=== PATIENT | male | born 1950 | race Caucasian/White ===

== ENCOUNTER 2020-05-06 03:49 | Emergency (ER) | payer MEDICARE ==
[~2020-05-06] VITALS: Ht 175 cm; Wt 92.9 kg
[2020-05-06] MEDS ORDERED: KETOROLAC 30 MG/ML VIAL IM ONE (04:30)
[2020-05-06] MEDS ORDERED: PRD20T PO (05:01)
--- NOTE | 2020-05-06 05:01 | ED Hip Pain/Injury ---
General Chief Complaint: Hip/Pelvic Problems Stated Complaint: LEFT HIP PAIN Nursing Triage Note: POSSIBLY FELL A FEW MONTHS AGO. INCREASE PAIN IN THE LEFT HIP IN THE PAST FEW WEEKS. UNABLE MOBILIZE THIS EVENING. INCREASE PAIN WITH WEIGHT BEARING. TOOK SOME IBUPROFEN BEFORE MIDNIGHT TONIGHT. Source: patient Exam Limitations: no limitations (ARNALDO TURNER MD) History of Present Illness Date Seen by Provider: May 06, 2020 Time Seen by Provider: 03:58 Initial Comments This 69-year-old gentleman presents to the emergency room by private vehicle. He drove himself here but was unable to get in on his own. Staff brought him in from the car by wheelchair. His primary complaint today is left hip pain. It is worse with weightbearing. Pain seems to originate around the left SI joint, radiates along the greater trochanter, and then radiates down the left leg. He denies any bowel or bladder dysfunction, groin paresthesia, or true weakness. He took 1 ibuprofen around midnight. (ARNALDO TURNER MD) Allergies and Home Medications Allergies Coded Allergies: No Known Drug Allergies (Unverified , 05/06/20) Home Medications Amlodipine Besylate 10 Mg Tablet, 10 MG PO DAILY Prescribed by: SHAJI ORTEGA on 05/06/20 0755 Metoprolol Succinate 50 Mg Tab.er.24h, 50 MG PO DAILY Prescribed by: SHAJI ORTEGA on 05/06/20 0755 Prednisone 20 Mg Tab, 20 MG PO DAILY Prescribed by: ARNALDO VALERA on 05/06/20 0501 Tramadol HCl 50 Mg Tablet, 50 MG PO Q6H PRN for PAIN Prescribed by: SHAJI ORTEGA on 05/06/20 0802 Patient Home Medication List Home Medication List Reviewed: Yes (ARNALDO TURNER MD) Review of Systems Constitutional: no symptoms reported EENTM: no symptoms reported Respiratory: no symptoms reported Cardiovascular: no symptoms reported Gastrointestinal: no symptoms reported Genitourinary: no symptoms reported Musculoskeletal: see HPI Skin: no symptoms reported Psychiatric/Neurological: No Symptoms Reported (ARNALDO TURNER MD) Past Shlparm-Taflpf-Hdupgq Hx Past Med/Social Hx: Reviewed Nursing Past Med/Soc Hx (ARNALDO TURNER MD) Patient Social History Alcohol Use: Denies Use 2nd Hand Smoke Exposure: No Recent Infectious Disease Expo: No Recent Hopitalizations: No (ARNALDO TURNER MD) Seasonal Allergies Seasonal Allergies: No (ARNALDO TURNER MD) Past Medical History Surgeries: No Respiratory: No Cardiac: Yes Hypertension Neurological: No Genitourinary: No Gastrointestinal: No Musculoskeletal: No Endocrine: No HEENT: No Cancer: No Psychosocial: No Integumentary: No Blood Disorders: No (ARNALDO TURNER MD) Physical Exam Vital Signs Vital Signs - First Documented 05/06/20 04:14 Temp 37.3 Pulse 104 Resp 22 B/P (MAP) 197/124 (148) Pulse Ox 98 O2 Delivery Room Air (SHAJI ORTEGA MD) Vital Signs Capillary Refill : Less Than 3 Seconds (ARNALDO TURNER MD) Height, Weight, BMI Height: '" Weight: lbs. oz. kg; 30.00 BMI Method: General Appearance: WD/WN, Mild Distress, Thin HEENT: PERRL/EOMI, Normal ENT Inspection Neck: Normal Inspection Cardiovascular: Regular Rate, Rhythm, No Edema, No Murmur Respiratory: Lungs Clear, Normal Breath Sounds, No Accessory Muscle Use Gastrointestinal: Normal Bowel Sounds, Non Tender, Soft Back: Normal Inspection, Other (Left SI joint tenderness. ) Extremity: No Pedal Edema, Other (No tenderness directly over the left hip joint. Tenderness to palpation over the greater trochanter. 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, Abnormal Cerebellar Tests Skin: Normal Color, Warm/Dry (ARNALDO TURNER MD) Progress/Results/Core Measures Results/Orders Lab Results Laboratory Tests Test 05/06/20 05:30 05/06/20 07:06 Range/Units White Blood Count 13.3 H 4.3-11.0 10^3/uL Red Blood Count 3.89 L 4.30-5.52 10^6/uL Hemoglobin 9.9 L 13.3-17.7 g/dL Hematocrit 32 L 40-54 % Mean Corpuscular Volume 83 80-99 fL Mean Corpuscular Hemoglobin 25 25-34 pg Mean Corpuscular Hemoglobin Concent 31 L 32-36 g/dL Red Cell Distribution Width 15.4 H 10.0-14.5 % Platelet Count 184 130-400 10^3/uL Mean Platelet Volume 10.7 9.0-12.2 fL Immature Granulocyte % (Auto) 1 % Neutrophils (%) (Auto) 91 H 42-75 % Lymphocytes (%) (Auto) 4 L 12-44 % Monocytes (%) (Auto) 4 0-12 % Eosinophils (%) (Auto) 0 0-10 % Basophils (%) (Auto) 0 0-10 % Neutrophils # (Auto) 12.1 H 1.8-7.8 10^3/uL Lymphocytes # (Auto) 0.6 L 1.0-4.0 10^3/uL Monocytes # (Auto) 0.5 0.0-1.0 10^3/uL Eosinophils # (Auto) 0.0 0.0-0.3 10^3/uL Basophils # (Auto) 0.0 0.0-0.1 10^3/uL Immature Granulocyte # (Auto) 0.1 0.0-0.1 10^3/uL Neutrophils % (Manual) 91 % Lymphocytes % (Manual) 5 % Monocytes % (Manual) 4 % Anisocytosis SLIGHT Sodium Level 137 135-145 MMOL/L Potassium Level 4.4 3.6-5.0 MMOL/L Chloride Level 106 98-107 MMOL/L Carbon Dioxide Level 15 L 21-32 MMOL/L Anion Gap 16 H 5-14 MMOL/L Blood Urea Nitrogen 29 H 7-18 MG/DL Creatinine 3.08 H 0.60-1.30 MG/DL Estimat Glomerular Filtration Rate 20 BUN/Creatinine Ratio 9 Glucose Level 114 H 70-105 MG/DL Calcium Level 9.4 8.5-10.1 MG/DL C-Reactive Protein High Sensitivity 0.82 H 0.00-0.50 MG/DL TSH [place] Testing 1.62 0.35-4.94 UIU/ML Urine Color YELLOW Urine Clarity CLEAR Urine pH 5.5 5-9 Urine Specific [place] >=1.030 1.016-1.022 Urine Protein 2+ H NEGATIVE Urine Glucose (UA) NEGATIVE NEGATIVE Urine Ketones NEGATIVE NEGATIVE Urine Nitrite NEGATIVE NEGATIVE Urine Bilirubin NEGATIVE NEGATIVE Urine Urobilinogen 0.2 < = 1.0 MG/DL Urine Leukocyte Esterase NEGATIVE NEGATIVE Urine RBC (Auto) 2+ H NEGATIVE Urine RBC RARE /HPF Urine WBC 0-2 /HPF Urine Crystals NONE /LPF Urine Bacteria TRACE /HPF Urine Casts PRESENT /LPF Urine Granular Casts 2-5 H /LPF Urine Mucus NEGATIVE /LPF Urine Culture Indicated NO (SHAJI ORTEGA MD) My Orders Orders - SHAJI ORTEGA MD Hydralazine Injection (Apresoline Inject (05/06/20 06:45) Ed Iv/Invasive Line Start (05/06/20 06:31) Ekg Tracing (05/06/20 06:31) Ns Iv 500 Ml (Sodium Chloride 0.9%) (05/06/20 06:45) Chest 1 View, Ap/Pa Only (05/06/20 06:40) Acetaminophen Tablet (Tylenol Tablet) (05/06/20 06:57) Morphine Injection (Morphine Injection (05/06/20 07:00) Metoprolol Tartrate Injection (Lopressor (05/06/20 07:30) Metoprolol Succinate (Xl) Tab (Toprol Xl (05/06/20 07:30) Prednisone Tablet (Deltasone Tablet) (05/06/20 08:00) (SHAJI ORTEGA MD) Medications Given in ED Current Medications Medications Dose Ordered Sig/Jeff Route Start Time Stop Time Status Last Admin Dose Admin Amlodipine Besylate 10 mg ONCE ONCE PO 05/06/20 05:30 05/06/20 05:31 DC 05/06/20 05:33 10 MG Hydralazine HCl 10 mg ONCE ONCE IV 05/06/20 06:45 05/06/20 06:46 DC 05/06/20 06:51 10 MG Ketorolac Tromethamine 30 mg ONCE ONCE IM 05/06/20 04:30 05/06/20 04:31 DC 05/06/20 04:30 30 MG Metoprolol Tartrate 5 mg ONCE ONCE IV 05/06/20 07:30 05/06/20 07:32 DC 05/06/20 07:49 5 MG Morphine Sulfate 2 mg ONCE ONCE IVP 05/06/20 07:00 05/06/20 07:01 DC 05/06/20 07:04 2 MG Prednisone 40 mg ONCE ONCE PO 05/06/20 08:00 05/06/20 08:01 DC 05/06/20 07:53 40 MG Sodium Chloride 500 ml @ 0 mls/hr Q0M ONCE IV 05/06/20 06:45 05/06/20 06:46 DC 05/06/20 06:51 999 MLS/HR (SHAJI ORTEGA MD) Vital Signs/I&O 05/06/20 04:14 Temp 37.3 Pulse 104 Resp 22 B/P (MAP) 197/124 (148) Pulse Ox 98 O2 Delivery Room Air (SHAJI ORTEGA MD) Blood Pressure Mean: 148 Progress Progress Note #1: Time: 05:26 Progress Note Patient was feeling significantly improved after a Toradol injection. X-rays were unremarkable. He was being prepared for discharge would it was noted that his blood pressure did not improve with pain control. After multiple rechecks he was offered some work-up and treatment for hypertension. He decided to proceed with work-up and treatment. Norvasc 10 mg was ordered and blood work is being obtained. He also describes having some nausea and dizziness yesterday when his pain was intense. Patient reports having hypertension since he was very young. Progress Note #2: Time: 06:05 Progress Note WBC was noted to be elevated. CRP and UA are being added to the labs. Care of this patient is being transitioned to Dr. Ortega at this time. (ARNALDO TURNER MD) Progress Note : Progress Note 0632: Patient's blood pressure remains elevated in the low 200s over 130s. IV ordered. Hydralazine 10 mg IV ordered. We will also get EKG and chest x-ray. Patient noted to have have creatinine at 3 and other signs of chronic renal failure. Hypertension not improved after amlodipine earlier. States hip pain is a little better now and more tolerable but he still has continuation of pain. Pending UA. Monitor patient. 0740: Patient's blood pressure decreased to 170/106. I have discussed the case with Dr. Emerson. He is recommending 5 mg of Lopressor IV now and 50 mg of Toprol-XL p.o. now. We will continue outpatient therapy with amlodipine 10 mg p.o. daily as well as Toprol-XL 50 mg p.o. daily and he will see the patient on . We will initiate prednisone daily for 5 days for the hip pain and will give outpatient prescription for tramadol that he can take with acetaminophen. Patient was instructed to avoid NSAIDs due to the kidney disease and does admit that he has been taking those recently. I did discuss in depth my concerns related to his chronic renal failure and uncontrolled hypertension and how these relate. I also discussed the importance of follow-up and appropriate control of his blood pressure to decrease worsening of his renal disease. Patient verbalized understanding and intent to comply. (SHAJI ORTEGA MD) Initial ECG Impression Date: May 06, 2020 Initial ECG Impression Time: 06:44 Initial ECG Rate: 101 Initial ECG Rhythm: S.Tach Comment Sinus tachycardia with PVC noted. Left ventricular hypertrophy likely. No evidence of ST elevation MD. Normal axis. Interpreted by me. (SHAJI ORTEGA MD) Diagnostic Imaging Diagonstic Imaging: Xray Plain Films/CT/US/NM/MRI: pelvis, hip Comments [facility], [place] NAME: IGGY ALFRED [facility] REC#: [id number] PT STATUS: REG ER : 1950 PHYSICIAN: ARNALDO TURNER MD ADMIT DATE: 05/06/20/ER Draft Date of Exam:05/06/20 PELVIS WITH LEFT HIP 2-3 VIEWS INDICATION: Hip pain COMPARISON: None FINDINGS: Single view of the pelvis and two views of the left hip demonstrate symmetric swxt-en-vlthtrha degenerative joint disease bilaterally. There is no acute fracture or dislocation. No osseous lesion. IMPRESSION: Degenerative joint disease without fracture Dictated on workstation # [id number] Dict: 05/06/2007 Trans: 05/06/20 0613 ELVA [id number] Interpreted by: IGGY PEREZ Electronically signed by: (SHAJI ORTEGA MD) Departure Impression Primary Impression: Left hip pain Additional Impressions: Lumbar radiculopathy, acute Hypertension Qualified Codes: I10 - Essential (primary) hypertension Chronic renal disease Qualified Codes: N18.9 - Chronic kidney disease, unspecified Disposition: 01 HOME, SELF-CARE Condition: Stable Departure-Patient Inst. Decision time for Depature: 04:58 (ARNALDO TURNER MD) Decision time for Depature: 07:50 (SHAJI ORTEGA MD) Referrals: NO,LOCAL PHYSICIAN (PCP/Family) Primary Care Physician Patient Instructions: Hip Pain (DC), Radiculopathy, High Blood Pressure (DC), Kidney Failure (DC) Add. Discharge Instructions: You may take Tylenol/acetaminophen 1000 mg every 6 hours as needed for pain. You may take other pain medication as prescribed if that is not working. It is very important that you follow-up with Dr. Butts on . Call his office today for appointment. Let them know that the case was discussed with him and he wants to see you on . Take medications as prescribed. It is very important that you get control of your high blood pressure as this is significantly affecting your kidney function which is dangerous. Return for worse pain, fever, vomiting, weakness, breathing problems or other concerns as needed. Do not take ibuprofen, Motrin, Aleve, Naprosyn or similar NSAIDs as these are hard on the kidney function. You need to drink plenty of fluids. All discharge instructions reviewed with patient and/or family. Voiced understanding. Scripts Tramadol HCl (Tramadol HCl) 50 Mg Tablet 50 MG PO Q6H PRN for PAIN for 3 Days, #12 TAB 0 Refills Prov: SHAJI ORTEGA MD 05/06/20 Metoprolol Succinate (Toprol Xl) 50 Mg Tab.er.24h 50 MG PO DAILY, #30 TAB 0 Refills Prov: SHAJI ORTEGA MD 05/06/20 Amlodipine Besylate (Amlodipine Besylate) 10 Mg Tablet 10 MG PO DAILY, #30 TAB 0 Refills Prov: SHAJI ORTEGA MD 05/06/20 Prednisone (Prednisone) 20 Mg Tab 20 MG PO DAILY, #4 TAB 0 Refills Prov: ARNALDO TURNER MD 05/06/20 Copy Copies To 1: NOEL BUTTS MD, JOSHUA T MD May 06, 2020 05:01 SHAJI ORTEGA MD May 06, 2020 06:57
[2020-05-06] MEDS ORDERED: amLODIPine 10 MG (NORVASC) TAB PO ONE (05:30)
[2020-05-06 05:42] LABS: BASOPHILS % (AUTO) 0 % (0-10); EOSINOPHILS % (AUTO) 0 % (0-10); HEMATOCRIT 32 % (40-54); HEMOGLOBIN 9.9 g/dL (13.3-17.7); LYMPHOCYTES # (AUTO) 0.6 10^3/uL (1.0-4.0); LYMPHOCYTES % (AUTO) 4 % (12-44); MEAN CORPUSCULAR HEMOGLOBIN 25 pg (25-34); MEAN CORPUSCULAR HGB CONC 31 g/dL (32-36); MEAN CORPUSCULAR VOLUME 83 fL (80-99); MEAN PLATELET VOLUME 10.7 fL (9.0-12.2); MONOCYTES # (AUTO) 0.5 10^3/uL (0.0-1.0); MONOCYTES % (AUTO) 4 % (0-12); NEUTROPHILS # (AUTO) 12.1 10^3/uL (1.8-7.8); NEUTROPHILS % (AUTO) 91 % (42-75); WHITE BLOOD COUNT 13.3 10^3/uL (4.3-11.0)
[2020-05-06 05:59] LABS: POTASSIUM 4.4 MMOL/L (3.6-5.0)
[2020-05-06 06:00] LABS: CALCIUM 9.4 MG/DL (8.5-10.1)
[2020-05-06 06:05] LABS: CREATININE SERUM 3.08 MG/DL (0.60-1.30)
--- NOTE | 2020-05-06 06:15 | Diagnostic Imaging Report ---
INDICATION: Hip pain COMPARISON: None FINDINGS: Single view of the pelvis and two views of the left hip demonstrate symmetric auxo-wb-[id number] degenerative joint disease bilaterally. There is no acute fracture or dislocation. No osseous lesion. IMPRESSION: Degenerative joint disease without fracture Dictated by: Dictated on workstation # [id number]
[2020-05-06 06:26] LABS: ANISOCYTOSIS SLIGHT; LYMPHOCYTES % (MANUAL) 5 %; MONOCYTES % (MANUAL) 4 %; NEUTROPHILS % (MANUAL) 91 %; PLATELET COUNT 184 10^3/uL (130-400)
[2020-05-06 06:27] LABS: TSH (THYROID ANALYZER) 1.62 UIU/ML (0.35-4.94)
[2020-05-06] MEDS ORDERED: NS IV 500 ML 500 ML IV ONE (06:45)
[2020-05-06] MEDS ORDERED: hydrALAZINE (APESOLINE) 20 MG/ML VIAL IV ONE (06:45)
[2020-05-06] MEDS ORDERED: ACETAMINOPHEN 500 MG TAB (TYLENOL) PO STA (06:57)
[2020-05-06] MEDS ORDERED: morphine INJ 10 MG/ML 1ML (SYR OR VIAL) IVP ONE (07:00)
--- NOTE | 2020-05-06 07:02 | Diagnostic Imaging Report ---
INDICATION: Hypertension. COMPARISON: None FINDINGS: Single view of the chest demonstrates mild cardiac enlargement with central vascular congestion. Benign-appearing nodules in the left base. There is no pneumothorax or effusion. Osseous structures stable. IMPRESSION: Cardiac enlargement with central vascular congestion. Dictated by: Dictated on workstation # [id number]
[2020-05-06 07:12] LABS: BILIRUBIN,URINE NEGATIVE (NEGATIVE); CLARITY,URINE CLEAR; COLOR,URINE YELLOW; GLUCOSE, URINE (UA) NEGATIVE (NEGATIVE); KETONES,URINE NEGATIVE (NEGATIVE); LEUKOCYTE ESTERASE ,URINE NEGATIVE (NEGATIVE); NITRITE,URINE NEGATIVE (NEGATIVE); PH,URINE 5.5 (5-9); PROTEIN,URINE 2+ (NEGATIVE)
--- NOTE | 2020-05-06 07:27 | NUR ---
PT NO LONGER A PUI. PT NOTIFIED
[2020-05-06] MEDS ORDERED: meTOprolol 5 MG/5 ML (LOPRESSOR) VIAL IV ONE (07:30)
[2020-05-06] MEDS ORDERED: meTOproloL SUCCINATE 50 MG (TOPROL XL) TAB PO SCH (07:30)
[2020-05-06 07:31] LABS: BACTERIA,URINE TRACE /HPF; RBC,URINE RARE /HPF; WBC,URINE 0-2 /HPF
[2020-05-06] MEDS ORDERED: AMLO-251 PO (07:55)
[2020-05-06] MEDS ORDERED: METO-352 PO (07:55)
[2020-05-06] MEDS ORDERED: predniSONE 20 MG TAB PO ONE (08:00)
[2020-05-06] MEDS ORDERED: TRM50T PO (08:02)
[2020-05-06 08:30] VITALS: BP 175/115
== END 2020-05-06 08:30 | disposition home or self-care (01) ==
LOC: EDUNIT# 03:49 → ER 03:55
DX: M25.552 Pain in left hip (principal); M54.16 Radiculopathy, lumbar region; I12.9 Hypertensive chronic kidney disease with stage 1 through stage 4 chronic kidney disease, or unspecified chronic kidney disease; N18.9 Chronic kidney disease, unspecified; Z79.52 Long term (current) use of systemic steroids
CPT/HCPCS: 36415; 71045; 80048; 81000; 84443; 85007; 85027; 86141; 93005

== ENCOUNTER 2020-09-12 17:01 | Inpatient (IN) | payer MEDICARE ==
[~2020-09-12] VITALS: Ht 182 cm; Wt 68.9 kg
[~2020-09-12 17:01] MED LIST: AMLO-251 PO; METO-352 PO; PRD20T PO; TRM50T PO
--- NOTE | 2020-09-12 18:36 | ED General ---
General Chief Complaint: Neuro-Stroke Like Symptoms Stated Complaint: WEAKNESS Nursing Triage Note: family reports pt has been altered mentation for approx 3 weeks. no appetite. hx of cva. Nursing Sepsis Screen: No Definite Risk Exam Limitations: Other (PT UNABLE TO PROVIDE ANY INFORMATION, AND BROTHER IS EXTREMELY POOR HISTORIAN WELL. PAST MEDICAL HISTORY IS UNKNOWN, ARE MEDICA TIONS. ) History of Present Illness Date Seen by Provider: Sep 12, 2020 Time Seen by Provider: 18:05 Initial Comments PT ARRIVES VIA POV FROM HOME WITH BROTHER BOTH PT AND BROTHER ARE EXTREMELY POOR HISTORIANS, AND NEITHER CAN GIVE ANY INFORMATION ABOUT PAST MEDICAL HISTORY, MEDICATIONS, ETC PT IS MINIMALLY VERBAL AND DOES NOT VOLUNTEER ANY INFORMATION, ONLY ANSWERS A FEW VERY SIMPLE YES/NO QUESTIONS BROTHER STATES THAT PT WAS FOUND ON THE FLOOR TODAY AROUND [address] UN[address], PT LIVES ALONE BROTHER STATES PT HAS NOT BEEN ACTING RIGHT FOR THE LAST FEW WEEKS--AT LEAST 3 WEEKS BROTHER STATES THAT SISTER WENT TO SEE HIM LAST NIGHT AND "HE WAS TALKING OUT OF HIS HEAD", THEN NO ONE HAD SEEN OR TALKED TO HIM UNTIL TODAY AT 1600 BROTHER LAST SAW HIM LAST 09/05/20, AND HE "WASN'T RIGHT THEN EITHER" -- BROTHER STATES THAT HE DID NOT WANT TO SEE HIM, WOULD NOT LET HIM IN THE HOUSE, AND TOLD HIM TO LEAVE HIM ALONE BROTHER STATES HE HAS HAD A STROKE IN THE PAST, BUT DOES NOT KNOW HOW LONG AGO, WHAT HIS SYMPTOMS WERE, OR WHAT HIS RESIDUAL SYMPTOMS ARE/IF ANY BROTHER STATES THAT HE HAS LOST ALOT OF WEIGHT ( UNKNOWN AMOUNT ) OVER THE LAST FEW MONTHS, AND HAS HAD DECREASED APPETITE FOR SEVERAL MONTHS, AND HAS HAD AN OVERALL DECLINE AND CHANGE IN MENTATION FOR THE LAST FEW MONTHS. THEY REPORT THAT HE DOES NOT HAVE A DR, BUT HAS SEEN DR. VALDEZ IN THE PAST, BUT HAVE NO IDEA WHAT HE WAS SEEN / TREATED FOR BROTHER STATES HE IS ON A "BLOOD THINNER" BUT HAVE NO IDEA WHAT MEDICATION HE IS ON. RN CALLED [facility]--PT STATES THIS IS WHAT PHARMACY HE USES, AND THEY REPORT THAT PT HAS NOT FILLED ANY MEDICATIONS THERE SINCE MAY, AND WAS ONLY ON AMLODIPINE AND TOPROL. THEY HAVE NOT FILLED ANY PRESCRIPTIONS FOR ANY BLOOD THINNERS. THERE IS A SINGLE ER CHART FROM MAY OF THIS YEAR, AND PT WAS SEEN FOR HIP PAIN. THERE IS ESSENTIALLY NO PAST MEDICAL HISTORY NOTED AT THAT VISIT EITHER, OTHER THAN HTN PT STATES HE HAS NOT HAD COVID-19 VACCINE PT UNABLE TO STATE IF HE HAS HAD ANY COVID-19 SYMPTOMS PT DENIES PAIN ANYWHERE DENIES SHORTNESS OF BREATH PT HAS DIFFICULTY FOLLOWING SIMPLE COMMANDS [facility] CONSULTANT: DR. VALDEZ Allergies and Home Medications Allergies Coded Allergies: No Known Drug Allergies (Unverified , 05/06/20) Home Medications Amlodipine Besylate 10 Mg Tablet, 10 MG PO DAILY Prescribed by: SHAJI ORTEGA on 05/06/20 0755 Metoprolol Succinate 50 Mg Tab.er.24h, 50 MG PO DAILY Prescribed by: SHAJI ORTEGA on 05/06/20 0755 Prednisone 20 Mg Tab, 20 MG PO DAILY Prescribed by: ARNALDO VALERA on 05/06/20 0501 Tramadol HCl 50 Mg Tablet, 50 MG PO Q6H PRN for PAIN Prescribed by: SHAJI ORTEGA on 05/06/20 0802 Patient Home Medication List Home Medication List Reviewed: Yes Review of Systems Review of Systems Constitutional: malaise, weakness Psychiatric/Neurological: See HPI Past Afylcri-Iutosw-Usugpf Hx Patient Social History 2nd Hand Smoke Exposure: No Recent Infectious Disease Expo: No Recent Hopitalizations: No Seasonal Allergies Seasonal Allergies: No Past Medical History Surgeries: No Respiratory: No Cardiac: Yes Hypertension Neurological: No Genitourinary: No Gastrointestinal: No Musculoskeletal: No Endocrine: No HEENT: No Cancer: No Psychosocial: No Integumentary: No Blood Disorders: No Physical Exam Vital Signs Vital Signs - First Documented 09/12/20 17:52 Pulse 58 Resp 20 B/P (MAP) 144/106 (119) Pulse Ox 95 O2 Delivery Room Air Capillary Refill : Less Than 3 Seconds Height, Weight, BMI Height: '" Weight: lbs. oz. kg; 22.00 BMI Method: General Appearance: Cachetic, Other (KEEPS EYES CLOSED AT ALL TIMES. PT WITH SLIGHTLY LABORED BREATHING. ) HEENT: PERRL/EOMI, Other (NO EXTERNAL EVIDENCE OF TRAUMA TO HEAD OR FACE) Neck: Non Tender Respiratory: Normal Breath Sounds, Other (SLIGHTLY LABORED BREATHING) Cardiovascular: Regular Rate, Rhythm, No JVD, No Murmur Gastrointestinal: No Pulsatile Mass, Non Tender, Soft Back: No CVA Tenderness Extremity: Pedal Edema (2+ LOWER EXTREMITY EDEMA BILATERALLY; ALL TOES AND DISTAL HALF OF BOTH FEET CYANOTIC. UNABLE TO PALPATE PEDAL PULSES ON EITHER FOOT, BOTH FEET ARE COLD) Neurologic/Psychiatric: Other (AWAKE, BUT KEEPS EYES CLOSED, WILL ANSWER A FEW SIMPLE QUESTIONS AND SPEECH IS CLEAR, DOES APPEAR TO HAVE A LEFT FACIAL DROOP, HAS GENERALIZED WEAKNESS IN ALL EXTREMITIES-, WEAKNESS IS EQUAL GLOBALLY. ) Skin: Normal Color, Warm/Dry; No Rash Progress/Results/Core Measures Suspected Sepsis Recent Fever Within 48 Hours: No Infection Criteria Present: None New/Unexplained Altered Menta: No Sepsis Screen: No Definite Risk SIRS Temperature: Pulse: 58 Respiratory Rate: 20 Laboratory Tests 09/12/20 18:30: White Blood Count 13.1H Blood Pressure 144 /106 Mean: 119 Laboratory Tests 09/12/20 18:30: Creatinine 3.58H, Platelet Count 108L, Total Bilirubin 3.0H Results/Orders Lab Results Laboratory Tests Test 09/12/20 18:19 09/12/20 18:23 09/12/20 18:30 Range/Units Glucometer 59 *L 70-110 MG/DL Influenza Type A (RT-PCR) Not Detected Not Detecte Influenza Type B (RT-PCR) Not Detected Not Detecte SARS-CoV-2 RNA (RT-PCR) Not Detected Not Detecte White Blood Count 13.1 H 4.3-11.0 10^3/uL Red Blood Count 5.78 H 4.30-5.52 10^6/uL Hemoglobin 13.9 13.3-17.7 g/dL Hematocrit 45 40-54 % Mean Corpuscular Volume 78 L 80-99 fL Mean Corpuscular Hemoglobin 24 L 25-34 pg Mean Corpuscular Hemoglobin Concent 31 L 32-36 g/dL Red Cell Distribution Width 19.7 H 10.0-14.5 % Platelet Count 108 L 130-400 10^3/uL Mean Platelet Volume 10.4 9.0-12.2 fL Immature Granulocyte % (Auto) 1 % Neutrophils (%) (Auto) 92 H 42-75 % Lymphocytes (%) (Auto) 3 L 12-44 % Monocytes (%) (Auto) 5 0-12 % Eosinophils (%) (Auto) 0 0-10 % Basophils (%) (Auto) 0 0-10 % Neutrophils # (Auto) 12.1 H 1.8-7.8 10^3/uL Lymphocytes # (Auto) 0.4 L 1.0-4.0 10^3/uL Monocytes # (Auto) 0.6 0.0-1.0 10^3/uL Eosinophils # (Auto) 0.0 0.0-0.3 10^3/uL Basophils # (Auto) 0.0 0.0-0.1 10^3/uL Immature Granulocyte # (Auto) 0.1 0.0-0.1 10^3/uL Neutrophils % (Manual) 92 % Lymphocytes % (Manual) 4 % Monocytes % (Manual) 4 % Percent Immature Platelet Fraction 6.1 0.0-7.6 % Anisocytosis SLIGHT Sodium Level 144 135-145 MMOL/L Potassium Level 4.4 3.6-5.0 MMOL/L Chloride Level 109 H 98-107 MMOL/L Carbon Dioxide Level 12 L 21-32 MMOL/L Anion Gap 23 H 5-14 MMOL/L Blood Urea Nitrogen 69 H 7-18 MG/DL Creatinine 3.58 H 0.60-1.30 MG/DL Estimat Glomerular Filtration Rate 17 BUN/Creatinine Ratio 19 Glucose Level 92 70-105 MG/DL Calcium Level 9.7 8.5-10.1 MG/DL Corrected Calcium 9.8 8.5-10.1 MG/DL Magnesium Level 2.7 H 1.6-2.4 MG/DL Iron Level 38 37-167 ug/dL Total Iron Binding Capacity 263 237-330 ug/dL Unsaturated Iron Binding Capacity 225 25-500 ug/dL Transferrin % Saturation 14 L 17-57 % Ferritin 143.6 32.0-356.0 ng/mL Total Bilirubin 3.0 H 0.1-1.0 MG/DL Aspartate Amino Transf (AST/SGOT) 19 5-34 U/L Alanine Aminotransferase (ALT/SGPT) 20 0-55 U/L Alkaline Phosphatase 113 40-136 U/L Total Creatine Kinase 190 30-200 U/L Creatine Kinase MB 6.2 <6.6 NG/ML Myoglobin 869.9 H 10.0-92.0 NG/ML Total Protein 6.9 6.4-8.2 GM/DL Albumin 3.9 3.2-4.5 GM/DL TSH [place] Testing 1.82 0.35-4.94 UIU/ML Acetaminophen Level < 10 L 10-30 UG/ML Serum Alcohol < 10 <10 MG/DL My Orders Orders - AURELIO SANDERS DO Accucheck Stat ONCE (09/12/20 18:06) Ekg Tracing (09/12/20 18:06) Chest 1 View, Ap/Pa Only (09/12/20 18:06) Acetaminophen (09/12/20 18:06) Alcohol (09/12/20 18:06) Creatine Kinase (09/12/20 18:06) Creatine Kinase Mb (09/12/20 18:06) Drug Screen Stat (Urine) (09/12/20 18:06) Thyroid Analyzer (09/12/20 18:06) Myoglobin Serum (09/12/20 18:06) Catheter(Urinary) Insert & Ass 03,15 (09/12/20 18:06) Nothing By Mouth (09/12/20 Dinner) Accucheck Stat ONCE (09/12/20 18:06) Vital Signs Stroke Patient Q15M (09/12/20 18:06) Intake & Output 06,14,22 (09/12/20 18:06) Influenza A And B By Pcr (09/12/20 18:15) Covid 19 Inhouse Test (09/12/20 18:15) D50w (Emergency) Syringe (Dextrose 50% 5 (09/12/20 18:45) Lactated Ringers (Lr 1000 Ml Iv Solution (09/12/20 18:45) Ct Head/Cervical Spine Wo (09/12/20 18:06) Lidocaine 2% (Urojet) (Xylocaine Urojet) (09/12/20 19:45) Medications Given in ED Vital Signs/I&O 09/12/20 17:52 Pulse 58 Resp 20 B/P (MAP) 144/106 (119) Pulse Ox 95 O2 Delivery Room Air Capillary Refill : Less Than 3 Seconds Blood Pressure Mean: 119 Progress Note : Progress Note ACCUCHECK 59--GIVEN D50 AND IV OF LR COVID-19 TESTING PERFORMED NO DETERIORATION IN PT'S CONDITION DURING ER STAY FAMILY DO NOT KNOW PT'S CODE STATUS. ECG Initial ECG Impression Date: Sep 12, 2020 Initial ECG Impression Time: 18:10 Initial ECG Rate: 100 Initial ECG Rhythm: S.Tach Initial ECG Impression: Nonspecific Changes Initial ECG Comparisson: No Previous ECG Available Diagnostic Imaging Comments CT HEAD/CERVICAL SPINE--PER RADIOLOGIST VIA PHONE AT 1929 IMPRESSION: 1. Encephalomalacia within the left frontal lobe which has a more subacute or chronic appearance. Consider evaluation with MRI to evaluate for acute infarct. 2. Background chronic microangiopathy and volume loss. 3. Degenerative changes of the cervical spine without acute osseous abnormality. CXR PER RADIOLOGIST REPORT IMPRESSION: Stable cardiomegaly with findings of pulmonary vascular congestion. No other acute radiographic abnormality in the chest. Reviewed: Reviewed by Me Departure Communication (Admissions) 1938--SPOKE WITH DR. SILVA, HOSPITALIST, ACCEPTS PT FOR ADMIT. ORDERS NOTED Impression Primary Impression: Altered mental status Additional Impressions: Acute kidney injury superimposed on chronic kidney disease Dehydration Unwitnessed fall SUBACUTE CVA HTN (hypertension) Qualified Codes: I10 - Essential (primary) hypertension Emaciation Disposition: ADMITTED INPATIENT Condition: Stable Admissions Decision to Admit Reason: Admit from ER (General) Decision to Admit/Date: Sep 12, 2020 Time/Decision to Admit Time: 19:40 Departure-Patient Inst. Referrals: NO,LOCAL PHYSICIAN (PCP/Family) Primary Care Physician AURELIO SANDERS DO Sep 12, 2020 18:36
[2020-09-12] MEDS ORDERED: DEXTROSE 50% 50 ML (IMS) SYR ONE (18:42)
[2020-09-12 18:45] LABS: BASOPHILS % (AUTO) 0 % (0-10); EOSINOPHILS % (AUTO) 0 % (0-10)
[2020-09-12] MEDS ORDERED: DEXTROSE 50% 50 ML (IMS) SYR IV ONE (18:45)
[2020-09-12] MEDS ORDERED: LACTATED RINGERS 1,000 ML IV ONE ×3 (18:45→20:01)
[2020-09-12 18:47] LABS: HEMATOCRIT 45 % (40-54); HEMOGLOBIN 13.9 g/dL (13.3-17.7); LYMPHOCYTES # (AUTO) 0.4 10^3/uL (1.0-4.0); LYMPHOCYTES % (AUTO) 3 % (12-44); MEAN CORPUSCULAR HEMOGLOBIN 24 pg (25-34); MEAN CORPUSCULAR HGB CONC 31 g/dL (32-36); MEAN CORPUSCULAR VOLUME 78 fL (80-99); MEAN PLATELET VOLUME 10.4 fL (9.0-12.2); MONOCYTES # (AUTO) 0.6 10^3/uL (0.0-1.0); MONOCYTES % (AUTO) 5 % (0-12); NEUTROPHILS # (AUTO) 12.1 10^3/uL (1.8-7.8); NEUTROPHILS % (AUTO) 92 % (42-75); PLATELET COUNT 108 10^3/uL (130-400); WHITE BLOOD COUNT 13.1 10^3/uL (4.3-11.0)
[2020-09-12 18:56] LABS: ALBUMIN 3.9 GM/DL (3.2-4.5); CHLORIDE 109 MMOL/L (98-107); POTASSIUM 4.4 MMOL/L (3.6-5.0); SODIUM 144 MMOL/L (135-145)
[2020-09-12 18:57] LABS: CALCIUM 9.7 MG/DL (8.5-10.1)
[2020-09-12 18:59] LABS: GLUCOSE 92 MG/DL (70-105); TOTAL PROTEIN 6.9 GM/DL (6.4-8.2)
[2020-09-12 19:00] LABS: CARBON DIOXIDE 12 MMOL/L (21-32)
[2020-09-12 19:02] LABS: ALKALINE PHOSPHATASE 113 U/L (40-136); CREATININE SERUM 3.58 MG/DL (0.60-1.30); GFR ESTIMATED 17
[2020-09-12 19:03] LABS: BUN/CREATININE RATIO 19
[2020-09-12 19:05] LABS: ACETAMINOPHEN < 10 UG/ML (10-30); ALANINE AMINOTRANSFERASE 20 U/L (0-55); MAGNESIUM 2.7 MG/DL (1.6-2.4)
[2020-09-12 19:06] LABS: CREATINE KINASE 190 U/L (30-200)
[2020-09-12 19:13] LABS: CREATINE KINASE MB 6.2 NG/ML (<6.6)
[2020-09-12 19:25] LABS: TSH (THYROID ANALYZER) 1.82 UIU/ML (0.35-4.94)
[2020-09-12 19:35] LABS: ANISOCYTOSIS SLIGHT; LYMPHOCYTES % (MANUAL) 4 %; MONOCYTES % (MANUAL) 4 %; NEUTROPHILS % (MANUAL) 92 %
[2020-09-12] MEDS ORDERED: LIDOCAINE UROJET 2% GEL 10 ML PKG TOP ONE (19:45)
--- NOTE | 2020-09-12 19:51 | Diagnostic Imaging Report ---
EXAMINATION: Chest 1 view. HISTORY: AMS. COMPARISON: Chest radiograph 05/06/2020. FINDINGS: Stable mild enlargement of the cardiac silhouette and prominence of the pulmonary vasculature. Calcified granuloma within the left lung base, unchanged. No new consolidation, pleural effusion or pneumothorax. There is elevation of the left hemidiaphragm. Calcifications of the aorta. The osseous structures are intact. IMPRESSION: Stable cardiomegaly with findings of pulmonary vascular congestion. No other acute radiographic abnormality in the chest. Dictated by: Dictated on workstation # [id number]
--- NOTE | 2020-09-12 19:53 | Diagnostic Imaging Report ---
EXAMINATION: CT head and CT cervical spine without contrast. TECHNIQUE: Multiple contiguous axial images were obtained through the brain and cervical spine without the use of intravenous contrast. Sagittal and coronal reformations through the cervical spine were then performed. All CT scans use one or more of the following dose optimizing techniques: automated exposure control, MA and/or KvP adjustment based on patient size and exam type or iterative reconstruction. HISTORY: Altered mental status, weakness. COMPARISON: None available. FINDINGS: HEAD: Mild diffuse cerebral volume loss with proportional enlargement of the ventricles and sulci. There is focal hypo-attenuation of the left frontal lobe which does involve the cortex on (series 2 image 44). Background hypodensity seen within the supratentorial white matter of both cerebral hemispheres. No acute intracranial hemorrhage or abnormal extra-axial fluid collections are present. Calcification of the intracranial ICAs. No hyperdense vessel. The calvarium is intact. The mastoid air cells are clear. The visualized paranasal sinuses are clear. The orbits are normal. C-SPINE: Vertebral body height and alignment are preserved. No acute fracture, dislocation, or destructive osseous process. Mild facet hypertrophy without perched facets. Multilevel cervical spondylosis. The paraspinous soft tissues are normal. The visualized thyroid gland is normal. The visualized lung apices are normal. IMPRESSION: 1. Encephalomalacia within the left frontal lobe which has a more subacute or chronic appearance. Consider evaluation with MRI to evaluate for acute infarct. 2. Background chronic microangiopathy and volume loss. 3. Degenerative changes of the cervical spine without acute osseous abnormality. These findings were communicated to Dr. Ramirez by Dr. Pantera Traylor at 7:30 PM on 09/12/2020. Dictated by: Dictated on workstation # [id number]
[2020-09-12 21:00] VITALS: BP 143/104
[2020-09-12] MEDS ORDERED: hydrALAZINE (APESOLINE) 20 MG/ML VIAL IV PRN (22:30)
[2020-09-12] MEDS: D5 1/2 NS 1000 ML IV SOLUTION 1,000 ML IV SCH (22:52)
[2020-09-13] VITALS (8 sets, daily range): BP systolic 123–153; BP diastolic 82–98
[2020-09-13 01:07] LABS: CLARITY,URINE SL CLOUDY; COLOR,URINE ORANGE; GLUCOSE, URINE (UA) NEGATIVE (NEGATIVE); KETONES,URINE NEGATIVE (NEGATIVE); LEUKOCYTE ESTERASE ,URINE TRACE (NEGATIVE); NITRITE,URINE NEGATIVE (NEGATIVE); PH,URINE 5.5 (5-9); PROTEIN,URINE 2+ (NEGATIVE)
[2020-09-13 01:36] LABS: AMPHETAMINE SCREEN, URINE NEGATIVE (NEGATIVE); BARBITURATE SCREEN URINE NEGATIVE (NEGATIVE); BENZODIAZEPINES SCREEN URINE NEGATIVE (NEGATIVE); CANNABINOID SCREEN, URINE NEGATIVE (NEGATIVE); COCAINE SCREEN URINE NEGATIVE (NEGATIVE); METHADONE STAT NEGATIVE (NEGATIVE); METHAMPHETAMINE SCREEN URINE S NEGATIVE (NEGATIVE); OPIATE SCREEN URINE NEGATIVE (NEGATIVE); OXYCODONE STAT NEGATIVE (NEGATIVE); PROPOXYPHENE STAT NEGATIVE (NEGATIVE); TRICYCLIC ANTIDEPRESSANTS SCRE NEGATIVE (NEGATIVE)
[2020-09-13 01:37] LABS: BACTERIA,URINE NEGATIVE /HPF; BILIRUBIN,URINE 2+ (NEGATIVE)
[2020-09-13 01:38] LABS: URIC ACID CRYSTALS,URINE LARGE /LPF
[2020-09-13] MEDS: D5 1/2 NS 1000 ML IV SOLUTION 1,000 ML IV SCH ×2 (05:21→13:59)
[2020-09-13 06:25] LABS: BASOPHILS % (AUTO) 0 % (0-10); EOSINOPHILS % (AUTO) 0 % (0-10); HEMATOCRIT 43 % (40-54)
[2020-09-13 06:27] LABS: LYMPHOCYTES # (AUTO) 0.3 10^3/uL (1.0-4.0); LYMPHOCYTES % (AUTO) 3 % (12-44); MEAN CORPUSCULAR HEMOGLOBIN 23 pg (25-34); MEAN CORPUSCULAR HGB CONC 30 g/dL (32-36); MEAN CORPUSCULAR VOLUME 78 fL (80-99); MEAN PLATELET VOLUME 11.3 fL (9.0-12.2); MONOCYTES # (AUTO) 0.5 10^3/uL (0.0-1.0); MONOCYTES % (AUTO) 4 % (0-12); NEUTROPHILS # (AUTO) 10.2 10^3/uL (1.8-7.8); NEUTROPHILS % (AUTO) 92 % (42-75); PLATELET COUNT 86 10^3/uL (130-400); WHITE BLOOD COUNT 11.1 10^3/uL (4.3-11.0)
[2020-09-13 06:38] LABS: ALBUMIN 3.6 GM/DL (3.2-4.5); POTASSIUM 4.1 MMOL/L (3.6-5.0)
[2020-09-13 06:41] LABS: TOTAL PROTEIN 6.3 GM/DL (6.4-8.2)
[2020-09-13 06:42] LABS: BILIRUBIN,TOTAL 2.6 MG/DL (0.1-1.0)
[2020-09-13 06:44] LABS: CREATININE SERUM 3.4 MG/DL (0.60-1.30)
[2020-09-13] MEDS ORDERED: BISACODYL 10 MG SUPP (DULCOLAX) PR PRN (08:15)
[2020-09-13] MEDS ORDERED: ONDANSETRON 4 MG/2 ML (SDV) Z0FRAN IV PRN (08:15)
[2020-09-13] MEDS ORDERED: polyethylene glycoL POWDER 17 GM (MIRALAX) PACK PO PRN (08:15)
[2020-09-13] MEDS ORDERED: ACETAMINOPHEN 325 MG TABLET PO PRN (08:15)
[2020-09-13] MEDS ORDERED: ONDANSETRON 4 MG (ZOFRAN) ORAL DISSOLVE TAB PO PRN (08:15)
[2020-09-13] MEDS ORDERED: MELATONIN 3 MG TABLET PO PRN (08:15)
[2020-09-13] MEDS ORDERED: ANTACID SUSP 30 ML UDC (MYLANTA) PO PRN (08:15)
[2020-09-13 08:17] LABS: INR 1.4 (0.8-1.4); PROTHROMBIN TIME PATIENT 17.4 SEC (12.2-14.7)
[2020-09-13 08:18] LABS: PHOSPHORUS 3.5 MG/DL (2.3-4.7)
[2020-09-13] MEDS ORDERED: ENOXAPARIN 30 MG/0.3 ML (LOVENOX) SYR SC SCH (09:00)
[2020-09-13] MEDS ORDERED: ASPIRIN 325 MG (5 GR) TABLET PO SCH (09:00)
[2020-09-13] MEDS: SODIUM BICARBONATE 650 MG TABLET (NON-FORMULARY) PO SCH ×4 (10:17→21:19)
[2020-09-13] MEDS: DOCUSATE SODIUM 100 MG (COLACE) CAP PO SCH ×3 (10:17→21:18)
[2020-09-13] MEDS: SENNOSIDES 8.6 MG (SENOKOT) TAB PO SCH ×2 (10:18→21:14)
--- NOTE | 2020-09-13 12:02 | History & Physical-Hospitalist ---
History of Present Illness HPI/Chief Complaint Bart Armstrong is a 70-year-old male with past medical history of hypertension, CKD 4, CVA, who presented with weakness. He was reportedly found down on the floor at his home by a family member. He had not been seen since the prior evening and he was confused at that time. The brother was unable to provide any history on the patient. The patient is a poor historian due to his altered mental status. Upon my examination, he tells me he has no past medical history. He is a lethargic and drifts in and out of sleep while talking with me. He denies any pain. He denies any trouble breathing. He denies alcohol or drug use. He denies any history of liver disease. Source: patient, RN/MD Exam Limitations: clinical condition Date Seen 09/13/20 Time Seen by a Provider: 10:45 Attending Physician Aniyah Silva MD PCP No,Local Physician Referring Physician Date of Admission Sep 12, 2020 at 19:40 Home Medications & Allergies Home Medications Reviewed patient Home Medication Reconciliation performed by pharmacy medication reconciliations certified master safe technician and/or nursing. Patients Allergies have been reviewed. Allergies Allergies Coded Allergies No Known Drug Allergies (Unverified05/06/20) Past Pffiigt-Tnxzba-Kjyftg Hx Patient Social History Tobacco Use?: No Smoking Status: Never a Smoker Smokeless Tobacco Frequency: Never a User Use of E-Cig and/or Vaping dev: No Substance use?: No Alcohol Use?: No Pt feels they are or have been: Unable to obtain Immunizations Up To Date Date of Influenza Vaccine: Jan 12, 2021 Tetanus Booster (TDap): Less Than 5 Years Hepatitis A: No Hepatitis B: No Seasonal Allergies Seasonal Allergies: No Current Status Advance Directives: No Communicates: Verbally Preferred Spoken Language: [place] Citizen Is interpretation needed?: No Past Medical History Hypertension Renal Failure Blood Disorders: No Family Medical History No Pertinent Family Hx Review of Systems Constitutional: see HPI Physical Exam Physical Exam Vital Signs Vital Signs - First Documented 09/12/20 09/12/20 17:52 21:00 Temp 36.3 Pulse 58 Resp 20 B/P (MAP) 144/106 (119) Pulse Ox 95 O2 Delivery Room Air Capillary Refill : Less Than 3 Seconds Height, Weight, BMI Height: '" Weight: lbs. oz. kg; 20.80 BMI Method: General Appearance: No Apparent Distress, Chronically ill, Thin HEENT: PERRL/EOMI, Pharynx Normal Neck: Normal Inspection, Supple Respiratory: Lungs Clear, Normal Breath Sounds, No Respiratory Distress Cardiovascular: Regular Rate, Rhythm Gastrointestinal: Normal Bowel Sounds, Non Tender, Soft Extremity: Normal Inspection, Non Tender, Pedal Edema Neurologic/Psychiatric: Alert, Disoriented, Motor Weakness, Other (No focal def icits) Skin: Cool, Jaundice, Other (No spider angiomata, palmar erythema, or other stigmata of chronic liver disease) Results Results/Procedures Labs Laboratory Tests 09/12/20 18:30 09/13/20 06:15 Patient resulted labs reviewed. Imaging: Reviewed Imaging Report Assessment/Plan Admission Diagnosis Acute encephalopathy Admission Status: Inpatient Order (span 2 midnights) Reason for Inpatient Admission: Possible stroke Assessment and Plan Acute encephalopathy Possible stroke Ground level fall Hyperlipidemia CT head showed no evidence of acute infarct, left frontal lobe encephalomalacia subacute or chronic appearing Begin ASA Plan for MRI Tuesday Lipid panel showed dyslipidemia Begin Lipitor Echo ordered Monitor on telemetry CK normal ABG with no CO2 retention Check ammonia level PT/OT Acute kidney injury superimposed on chronic kidney disease stage IV High anion gap metabolic acidosis Cr 3.58 on arrival, baseline appears to be around 3 Phos normal Begin sodium bicarb replacement Check lactic acid and betahydroxybutyrate Continue IV fluids Hyperbilirubinemia Thrombocytopenia Bili elevated at 3 on arrival, trending down Platelets 86 this morning, down slightly INR slightly elevated 1.4 Check ammonia level HTN Begin Amlodipine Hydralazine as needed DVT prophylaxis: Lovenox Diagnosis/Problems Diagnosis/Problems (1) Acute encephalopathy Status: Acute (2) Encephalomalacia Status: Acute (3) Fall from ground level Status: Acute (4) HLD (hyperlipidemia) Status: Acute (5) HTN (hypertension) Status: Acute Qualifiers: Hypertension type: essential hypertension Qualified Codes: I10 - Essential (primary) hypertension (6) Acute kidney injury superimposed on chronic kidney disease Status: Acute (7) CKD (chronic kidney disease) stage 4, GFR 15-29 ml/min Status: Chronic (8) Hyperbilirubinemia Status: Acute (9) Thrombocytopenia Status: Acute (10) High anion gap metabolic acidosis Status: Acute ANIYAH SILVA MD Sep 13, 2020 12:02
[2020-09-13] MEDS ORDERED: amLODIPine 5 MG (NORVASC) TAB PO ONE (12:15)
--- NOTE | 2020-09-13 13:04 | Physical Therapy Evaluation ---
PT Evaluation-General Medical Diagnosis Admission Date Sep 12, 2020 at 19:40 Medical Diagnosis: Fall at home Onset Date: Sep 12, 2020 Therapy Diagnosis Therapy Diagnosis: decreased mobility, generalized weakness Precautions Precautions/Isolations: Fall Prevention, Standard Precautions Weight Bear Status Right Lower Extremity: Right Full Weight Bearing Left Lower Extremity: Left Full Weight Bearing Referral Physician: Dr. Quintanilla Reason for Referral: Evaluation/Treatment, Gait Medical History Pertinent Medical History: CVA, HTN Current History Unwitnessed fall at home per report from family. Reviewed History: Yes Social History Home: Single Level Current Living Status: Alone Entry Into Home: Stairs With Railing PT Steps Into Home: 10 Prior Prior Level of Function SCALE: Activities may be completed with or without assistive devices. 5-Ykpvvkxefc-bsafksy completes the activity by him/herself with no assistance from a helper. 5-Set-up or Clean-up Assistance-helper sets up or cleans up; patient completes activity. Keene assists only prior to or following the activity. 4-Supervision or Touching Assistance-helper provides verbal cues and/or touching/steadying and/or contact guard assistance as patient completes activity. Assistance may be provided throughout the activity or intermittently. 3-Partial/Moderate Assistance-helper does LESS THAN HALF the effort. Keene lifts, holds or supports trunk or limbs, but provides less than half the effort. 2-Substantial/Maximal Assistance-helper does MORE THAN HALF the effort. Keene lifts or holds trunk or limbs and provides more than half the effort. 1-Nqsowbcnn-nzfuhu does ALL the effort. Patient does none of the effort to complete the activity. Or, the assistance of 2 or more helpers is required for the patient to complete the activity. If activity was not attempted, code reason: 7-Patient Refused. 9-Not Applicable-not attempted and the patient did not perform the activity before the current illness, exacerbation or injury. 10-Not Attempted due to Environmental Limitations-(lack of equipment, weather restraints, etc.). 88-Not Attempted due to Medical Conditions or Safety Concerns. Bed Mobility: 6 Transfers (B,C,W/C): 6 Gait: 6 Stairs: 6 PT Evaluation-Current Subjective Pt. in bed, states he isn't doing too good with walking but agrees to therapy. Pt/Family Goals home Objective Patient Orientation: Person Attachments: IV ROM/Strength ROM Upper Extremities WFL ROM Lower Extremities WFL (B) Strength Upper Extremities WFL Strength Lower Extremities Grossly 3+/5 (B) Integumentary/Posture Integumentary grossly intact Bowel Incontinence: No Bladder Incontinence: No Posture kyphotic Neuromuscular (Tone, Coordination, Reflexes) diminished Sensory Vision: Functional Hearing: Functional Transfers Roll Left to Right (QC): 4 Sit to Lying (QC): 3 Lying to Sitting/Side of Bed(Q: 4 Sit to Stand (QC): 3 Toilet Transfer (QC): 1 mod A x 2 to stand from toilet in bathroom Gait Does the Patient Walk?: Yes Mode of Locomotion: Walk Anticipated Mode of Locomotion: Walk Walk 10 feet (QC): 4 Distance: x 15', x 10' Gait Assistive Device: FWW Comments/Gait Description pt. needs several cues for hand placement on walker and proper maneuvering. Also general safety with walker use during ambulation. Balance Sitting Static: Good Sitting Dynamic: Good Standing Static: Fair Standing Dynamic: Fair Treatment toileting Assessment/Needs Pt. is a 70 y.o. male with generalized weakness and decreased mobility. Pt. was unsteady during gait and had difficulty using the FWW for ambulation in room. He was initially mod A to stand at EOB but mod A x 2 from toilet. Pt. had difficulty following therapist commands throughout session. Pt. would benefit from skilled PT to improve mobility, strength and safety for possible return home. Rehab Potential: Guarded PT Retail Sales Professional Goals Retail Sales Professional Goals PT Long-Term Goals Time Frame: Sep 20, 2020 Roll Left & Right (QC): 6 Sit to Lying (QC): 6 Lying-Sitting on Side/Bed(QC): 6 Sit to Stand (QC): 6 Chair/Gnz-rp-Ztqwh Xfer(QC): 6 Toilet Transfer (QC): 6 Does the Patient Walk: Yes Walk 10 feet (QC): 4 Walk 50ft with 2 Turns (QC): 4 PT Plan Problem List Problem List: Activity Tolerance, Functional Strength, Safety, Balance, Gait, Transfer, Bed Mobility, ROM Treatment/Plan Treatment Plan: Continue Plan of Care Treatment Plan: Bed Mobility, Concurrent Therapy, Education, Functional Activity Kami, Functional Strength, Gait, Safety, Therapeutic Exercise, Transfers Treatment Duration: Sep 20, 2020 Frequency: 6 times per week Estimated Hrs Per Day: .25 hour per day Patient and/or Family Agrees t: Yes Time/GCodes Time In: 0950 Time Out: 1015 Total Billed Treatment Time: 25 Total Billed Treatment [facility] FA [facility]' BRAN TAN PT Sep 13, 2020 13:04
--- NOTE | 2020-09-13 13:47 | Anesthesia-Procedure Note ---
Procedures/Interventions Procedure Start/Stop/Diagnosis Date of Procedure: Sep 13, 2020 Start Time: 13:30 Brief History Difficulty obtaining IV access. Stop Time: 13:42 Central Line/IV Access IV : Location: Right Site: Antecubital IV Catheter Type: Peripheral IV IV Catheter Gauge: 22 Progress 1st attempt in distal forearm Right Side, unsuccessful. 2nd attempt lateral AC 22 g successful. Procedure Conclusion secured in place with transparent dressing. Care to RN. BUNNY PHAM CRNA Sep 13, 2020 13:47
[2020-09-13] MEDS ORDERED: NS IV 1000 ML 1,000 ML ONE (14:15)
[2020-09-13] MEDS: NS IV 1000 ML 1,000 ML IV SCH ×2 (14:41→22:12)
[2020-09-14 03:34] VITALS: BP 136/100
[2020-09-14 05:11] LABS: BASOPHILS % (AUTO) 0 % (0-10); EOSINOPHILS % (AUTO) 0 % (0-10); HEMATOCRIT 43 % (40-54); HEMOGLOBIN 12.9 g/dL (13.3-17.7); LYMPHOCYTES # (AUTO) 0.3 10^3/uL (1.0-4.0); LYMPHOCYTES % (AUTO) 2 % (12-44); MEAN CORPUSCULAR HEMOGLOBIN 24 pg (25-34); MEAN CORPUSCULAR HGB CONC 30 g/dL (32-36); MEAN CORPUSCULAR VOLUME 79 fL (80-99); MEAN PLATELET VOLUME 10.1 fL (9.0-12.2); MONOCYTES # (AUTO) 0.6 10^3/uL (0.0-1.0); MONOCYTES % (AUTO) 4 % (0-12); NEUTROPHILS # (AUTO) 12.4 10^3/uL (1.8-7.8); NEUTROPHILS % (AUTO) 93 % (42-75); PLATELET COUNT 58 10^3/uL (130-400); WHITE BLOOD COUNT 13.3 10^3/uL (4.3-11.0)
[2020-09-14 05:20] LABS: POTASSIUM 4.6 MMOL/L (3.6-5.0)
[2020-09-14 05:21] LABS: CALCIUM 8.7 MG/DL (8.5-10.1)
[2020-09-14 05:26] LABS: CREATININE SERUM 3.36 MG/DL (0.60-1.30)
[2020-09-14] MEDS: NS IV 1000 ML 1,000 ML IV SCH (08:22)
[2020-09-14 08:42] VITALS: BP 150/102
[2020-09-14] MEDS ORDERED: FUROSEMIDE 40 MG/4 ML INJ (LASIX) IVP ONE (09:00)
[2020-09-14] MEDS ORDERED: SODIUM BICARBONATE 650 MG TABLET (NON-FORMULARY) PO SCH (09:00)
[2020-09-14] MEDS ORDERED: SODIUM BICARB 8.4% 50 MEQ/50 ML VIAL IV ONE (09:00)
[2020-09-14] MEDS ORDERED: amLODIPine 5 MG (NORVASC) TAB PO SCH (09:00)
[2020-09-14 09:02] LABS: INR 1.6 (0.8-1.4); PROTHROMBIN TIME PATIENT 19.2 SEC (12.2-14.7)
[2020-09-14 09:10] LABS: FIBRIN DEGRADATION PRODUCTS 9.87 UG/ML (0.00-0.49)
[2020-09-14] MEDS ORDERED: SODIUM BICARB 8.4% 50 MEQ/50 ML (ABBOTT) SYR IV ONE (09:45)
[2020-09-14] MEDS: SENNOSIDES 8.6 MG (SENOKOT) TAB PO SCH (09:59)
[2020-09-14] MEDS: DOCUSATE SODIUM 100 MG (COLACE) CAP PO SCH (09:59)
--- NOTE | 2020-09-14 14:07 | Discharge Summary ---
Discharge Summary Hospital Course Was the Problem List Reviewed?: Yes Problems/Dx: (1) Acute encephalopathy Status: Acute (2) Encephalomalacia Status: Acute (3) Fall from ground level Status: Acute (4) HLD (hyperlipidemia) Status: Acute (5) HTN (hypertension) Status: Acute Qualifiers: Qualified Codes: I10 - Essential (primary) hypertension (6) Acute kidney injury superimposed on chronic kidney disease Status: Acute (7) CKD (chronic kidney disease) stage 4, GFR 15-29 ml/min Status: Chronic (8) Hyperbilirubinemia Status: Acute (9) Thrombocytopenia Status: Acute (10) High anion gap metabolic acidosis Status: Acute (11) Heart failure Status: Acute (12) Elevated d-dimer Status: Acute Hospital Course Date of Admission: Sep 12, 2020 at 19:40 Admission Diagnosis : Acute encephalopathy due to presumed stroke Family Physician/Provider: SandraLocal Physician Date of Discharge: 09/14/20 Discharge Diagnosis: Cardiac arrest with pulseless electrical activity secondary to presumed pulmonary embolism, congestive heart failure, presumed acute ischemic stroke Hospital Course: Bart Armstrong was a 70-year-old male with past medical history of hypertension, carotid stenosis, who presented after being found on the ground at his home by his family and was admitted with acute encephalopathy due to possible acute ischemic stroke. According to his sister, he did not receive much medical care although they had encouraged him to see a doctor. It was unclear whether he had been taking his medications at home. His work-up revealed cardiomegaly and an elevated BNP and there was concern for cardiomyop athy. An echocardiogram was ordered but was unable to be completed. His course was also complicated by a lactic acidosis. There is no evidence of infection and he remained afebrile with a normal white blood cell count. His chest x-ray and urinalysis were unrevealing. Blood cultures were drawn but no results were available. His course was also complicated by an acute kidney injury superimposed on chronic kidney disease stage IV. He had a severe metabolic acidosis due to his lactic acidosis. He was started on bicarbonate replacement. His BUN remained stable. His electrolytes remained within normal limits. He was not fluid overloaded and remained on room air. His course was also complicated by thrombocytopenia which trended down. A DIC panel was obtained which was concerning for DIC. His D-dimer was elevated at nearly 10. His CODE STATUS was discussed with the patient and his sister and he elected DO NOT RESUSCITATE which seemed to align with his wishes. While his nurse was at his bedside, his breathing ceased and a pulse was unable to be obtained. His telemetry was reviewed and he appeared to have pulseless electrical activity. His PEA arrest was presumed to be due to pulmonary embolism. The time of was 1015 on 09/14/2020. Labs and Pending Lab Test: Laboratory Tests 09/13/20 15:47: Lactic Acid Level 5.18*H, Ammonia 28, Troponin I 0.113H, Beta-Hydroxybutyrate (Chem panel) 0.18, Procalcitonin 0.77H 09/13/20 18:35: Lactic Acid Level 5.56*H 09/14/20 05:02: Lactic Acid Level 5.10*H, White Blood Count 13.3H, Red Blood Count 5.39, Hemoglobin 12.9L, Hematocrit 43, Mean Corpuscular Volume 79L, Mean Corpuscular Hemoglobin 24L, Mean Corpuscular Hemoglobin Concent 30L, Red Cell Distribution Width 20.0H, Platelet Count 58L, Mean Platelet Volume 10.1, Immature Granulocyte % (Auto) 1, Neutrophils (%) (Auto) 93H, Lymphocytes (%) (Auto) 2L, Monocytes (%) (Auto) 4, Eosinophils (%) (Auto) 0, Basophils (%) (Auto) 0, Neutrophils # (Auto) 12.4H, Lymphocytes # (Auto) 0.3L, Monocytes # (Auto) 0.6, Eosinophils # (Auto) 0.0, Basophils # (Auto) 0.0, Immature Granulocyte # (Auto) 0.1, Sodium Level 145, Potassium Level 4.6, Chloride Level 115H, Carbon Dioxide Level 9*L, Anion Gap 21H, Blood Urea Nitrogen 68H, Creatinine 3.36H, Estimat Glomerular Filtration Rate 18, BUN/Creatinine Ratio 20, Glucose Level 99, Calcium Level 8.7 09/14/20 07:20: Troponin I 0.176H, Procalcitonin 0.88H 09/14/20 07:47: Prothrombin Time 19.2H, INR Comment 1.6H, Activated Partial Thromboplast Time 34, Fibrinogen 160L, D-Dimer 9.87H, Lactic Acid Level 5.46*H Home Meds Active Tramadol HCl 50 Mg Tablet 50 Mg PO Q6H PRN 3 Days Toprol Xl (Metoprolol Succinate) 50 Mg Tab.er.24h 50 Mg PO DAILY Amlodipine Besylate 10 Mg Tablet 10 Mg PO DAILY Prednisone 20 Mg Tab 20 Mg PO DAILY Assessment/Pt Instructions Patient Discharge Planning: <30 minutes discharge planning Discharge Physical Examination Vital Signs Vital Signs Date Time Temp Pulse Resp B/P (MAP) Pulse Ox O2 Delivery O2 Flow Rate FiO2 09/14/20 08:42 36.4 95 19 150/102 (118) 91 Room Air Allergies: Coded Allergies: No Known Drug Allergies (Unverified , 05/06/20) Discharge Summary Date of Admission Sep 12, 2020 at 19:40 Date of Discharge Discharge Date: Sep 14, 2020 Discharge Time: 10:15 Admission Diagnosis Acute encephalopathy due to presumed acute ischemic stroke Comfort Measures/ Cardiopulmonary Arrest: Cardiorespiratory Arrest Date of : Sep 14, 2020 Time of : 10:15 Discharge Diagnosis Cardiac arrest with pulseless electrical activity due to presumed pulmonary embolism, acute encephalopathy due to presumed acute ischemic stroke, congestive heart failure (1) Acute encephalopathy Status: Acute (2) Encephalomalacia Status: Acute (3) Fall from ground level Status: Acute (4) HLD (hyperlipidemia) Status: Acute (5) HTN (hypertension) Status: Acute Qualifiers: Qualified Codes: I10 - Essential (primary) hypertension (6) Acute kidney injury superimposed on chronic kidney disease Status: Acute (7) CKD (chronic kidney disease) stage 4, GFR 15-29 ml/min Status: Chronic (8) Hyperbilirubinemia Status: Acute (9) Thrombocytopenia Status: Acute (10) High anion gap metabolic acidosis Status: Acute (11) Cardiac arrest with pulseless electrical activity Status: Acute (12) Heart failure Status: Acute (13) Elevated d-dimer Status: Acute ANIYAH SILVA MD Sep 14, 2020 13:52
--- NOTE | 2020-09-15 13:47 | Physician Query Clarification ---
PQ-CHF Specificity Admission Date: Sep 12, 2020 at 19:40 Discharge Date: Sep 14, 2020 at 13:45 Dr. Silva, The medical record reflects the following clinical scenario: History/Risk Factors: CVA, BERTRAND, HTN w/ CHF/CKD-4 Clinical Findings: BNP 2941.5 Treatment: 40 mg IVP Lasix Question: Can you further specify the acuity &/or type of CHF per the clinical indicators above? Please document a response in the Progress Notes or Discharge Summary. 1. Acuity: Acute, Chronic or Acute on Chronic 2. Type: Systolic, Diastolic or Systolic & Diastolic 3. Unspecified: CHF cannot be further specified regarding type or acuity 4. Other, with explanation of clinical findings 5. Clinically undetermined, no explanation for clinical findings PHYSICIAN RESPONSE Acuity: Acute Type: CHF cannot be further specified Please remember a lack of response to the above will prompt a phone page by CDI/Coding staff. In responding to this query, please exercise your independent professional judgment. The purpose of this communication is to more accurately reflect the complexity of your patients condition. The fact that a question is asked does n ot imply that any particular answer is desired or expected. Thank you for your timely response to this clarification. Requestors name: Fredrick THIS PHYSICIAN QUERY FORM IS A PERMANENT PART OF THE MEDICAL RECORD FREDRICK SHERIDAN Sep 15, 2020 13:46 ANIYAH SILVA MD Sep 30, 2020 21:40
--- NOTE | 2020-09-15 13:52 | Physician Query Clarification ---
PQ-Present on Admission Admission/Discharge Admission Date: Sep 12, 2020 at 19:40 Discharge Date: Sep 14, 2020 at 13:45 Dr. Silva, Question: PE was documented in DS. Can you specify if this condition was present on admission? Please document a response in Progress Note or Discharge Summary. 1. Yes - Condition was present at the time of inpatient admission. 2. No - Condition was not present at the time of inpatient admission and it developed during the inpatient stay. 3. W - Provider is unable to clinically determine whether condition was present on admission or not. 4. Other [please specify] PHYSICIAN RESPONSE Condition was Present on Admit: Clinically unable to determine Please remember a lack of response to the above will prompt a phone page by CDI/Coding staff. In responding to this query, please exercise your independent professional judgment. The purpose of this communication is to more accurately reflect the complexity of your patients condition. The fact that a question is asked does not imply that any particular answer is desired or expected. Thank you for your timely response to this clarification. Requestors name: Fredrick THIS PHYSICIAN QUERY FORM IS A PERMANENT PART OF THE MEDICAL RECORD FREDRICK SHERIDAN Sep 15, 2020 13:52 ANIYAH SILVA MD Sep 30, 2020 21:41
== END 2020-09-14 13:45 | disposition expired | DRG 64 ==
LOC: EDUNIT# 17:01 → ER 17:02 → 4TH 19:40
PROVIDERS: ADMIT Internal Medicine; ATTEND Internal Medicine
DX: I63.9 Cerebral infarction, unspecified (principal); E43 Unspecified severe protein-calorie malnutrition; I26.99 Other pulmonary embolism without acute cor pulmonale; G93.40 Encephalopathy, unspecified; N17.9 Acute kidney failure, unspecified; E87.2 Acidosis; I13.0 Hypertensive heart and chronic kidney disease with heart failure and stage 1 through stage 4 chronic kidney disease, or unspecified chronic kidney disease; Z66 Do not resuscitate; Z20.822 Contact with and (suspected) exposure to COVID-19; N18.4 Chronic kidney disease, stage 4 (severe); I46.9 Cardiac arrest, cause unspecified; E86.0 Dehydration; R29.810 Facial weakness; R53.1 Weakness; E78.5 Hyperlipidemia, unspecified; I50.9 Heart failure, unspecified; E80.6 Other disorders of bilirubin metabolism; G93.89 Other specified disorders of brain; D69.6 Thrombocytopenia, unspecified; Z68.20 Body mass index [BMI] 20.0-20.9, adult; Z79.52 Long term (current) use of systemic steroids
CPT/HCPCS: 36415; 70450; 71045; 72125; 80048; 80053; 80061; 80306; 80320; 80329; 81000; 82010; 82140; 82550; 82553; 82728; 82947; 83540; 83550; 83605; 83735; 83874; 83880; 84100; 84145; 84443; 84484; 85007; 85025; 85027; 85379; 85384; 85610; 85730; 87040; 87636; 93005; 93041; 96374